=== PATIENT | female | born 1975 | race Hispanic/Latino ===

== ENCOUNTER 2017-04-21 05:27 | Inpatient (IN) | payer MEDICAID ==
[2017-04-21 05:28] VITALS: BMI 31.8
[2017-04-21] MEDS ORDERED: Sodium Chloride 0.9% 1,000 ML IV ONE ×2 (05:52→10:32)
--- NOTE | 2017-04-21 05:58 | C.PDOC ---
History Of Present Illness <Emerson Diaz - Last Filed: 04/21/17 07:00> <Victoria Bradley - Last Filed: 04/21/17 09:49> 42 year old female presents to the ED with complaints of difficulty swallowing for approximately 12 hours. Patient states at 6:30pm last night she ate a piece of meat and "it feels like its stuck in my throat." She notes multiple episodes of vomiting and states "this has happened before." Patient denies fever or other complaints. (Emerson Diaz) History Per: Patient History/Exam Limitations: no limitations Onset/Duration Of Symptoms: Hrs Current Symptoms Are (Timing): Still Present Recent travel outside of the [place]: No <Emerson Diaz - Last Filed: 04/21/17 07:00> <Victoria Bradley - Last Filed: 04/21/17 09:49> Time Seen by Provider: 04/21/17 05:37 Chief Complaint (Nursing): ENT Problem Past Medical History Reviewed: Historical Data, Nursing Documentation, Vital Signs - Medical History PMH: Anemia, Depression Surgical History: Cholecystectomy (2002) Family History: States: Unknown Family Hx - Social History Hx Tobacco Use: No Hx Alcohol Use: No Hx Substance Use: No - Immunization History Hx Tetanus Toxoid Vaccination: Yes Hx Influenza Vaccination: No Hx Pneumococcal Vaccination: No <Emesron Diaz - Last Filed: 04/21/17 07:00> Vital Signs: Last Vital Signs Temp 98.4 F 04/21/17 09:15 Pulse 82 04/21/17 09:15 Resp 18 04/21/17 09:15 BP 132/78 04/21/17 09:15 Pulse Ox 99 04/21/17 09:15 - [facility] Procedures DRESSING OF WOUND NEC (02/01/14) Review Of Systems Constitutional: Negative for: Fever, Chills ENT: Positive for: Other (difficulty swallowing) Respiratory: Negative for: Cough, Shortness of Breath Gastrointestinal: Negative for: Nausea, Vomiting <Emerson Diaz - Last Filed: 04/21/17 07:00> Physical Exam - Physical Exam Appears: Non-toxic, No Acute Distress Skin: Warm, Dry Head: Atraumatic, Normacephalic Eye(s): bilateral: Normal Inspection, PERRL, EOMI Ear(s): Bilateral: Normal Nose: Normal, No Discharge Oral Mucosa: Moist Tongue: Normal Appearing, No Swelling Lips: Normal Appearing, No Swelling Throat: Normal, No Erythema, No Exudate Neck: Supple Chest: Symmetrical, No Deformity Cardiovascular: Rhythm Regular, No Murmur Respiratory: Normal Breath Sounds, No Rales, No Rhonchi, No Wheezing Gastrointestinal/Abdominal: Soft, No Tenderness, No Distention, No Guarding, No Rebound Extremity: Normal ROM, No Tenderness <Emerson Diaz - Last Filed: 04/21/17 07:00> ED Course And Treatment - Laboratory Results Result Diagrams: 04/21/17 06:08 04/21/17 06:08 O2 Sat by Pulse Oximetry: 97 (RA) Progress Note: Neck and chest CT were ordered as well as labs and blood work. Patient was given Zofran and IV fluids. <Emerson Diaz - Last Filed: 04/21/17 07:00> - Laboratory Results Result Diagrams: 04/21/17 06:08 04/21/17 06:08 Interpretation Of Abnormal: Repeat EKG. RATE: 60BPM, NSR, NO ACUTE ST/T WAVE CHANGES <Victoria Bradley - Last Filed: 04/21/17 09:49> Progress <Emerson Diaz - Last Filed: 04/21/17 07:00> - Data Reviewed Data Reviewed: Lab, Diagnostic imaging <Victoria Bradley - Last Filed: 04/21/17 09:49> - Re-Evaluation Re-evaluation Note: 04/21/17 07:48 MILD DISCOMFORT NONTOXIC. PS SX SINCE 1830, NO IMPROVEMENT. +UNABLE TO TOLERATE SECRETIONS. 04/21/17 08:35 D/W DR NEWSOME GI ROTARY BAR OPERATOR 04/21/17 08:41 D/W DR DUMONT C/F PMD WILL ADMIT (Victoria Bradley) Medical Decision Making <Emerson Diaz - Last Filed: 04/21/17 07:00> <Victoria Bradley - Last Filed: 04/21/17 09:49> Medical Decision Making: r/o foreign body- labs imaging pending 700: pt pending ct results. endorsed to day shift pending ct results (Emerson Diaz) Disposition <Emerson Diaz - Last Filed: 04/21/17 07:00> Counseled Patient/Family Regarding: Studies Performed, Diagnosis - Disposition Disposition Time: 08:49 - POA Present On Arrival: None <Victoria Bradley - Last Filed: 04/21/17 09:49> - Disposition Disposition: HOSPITALIZED Condition: STABLE - Clinical Impression Clinical Impression: Esophageal foreign body - Scribe Statement The provider has reviewed the documentation as recorded by the Scribe <Emerson Diaz - Last Filed: 04/21/17 07:00> <Victoria Bradley - Last Filed: 04/21/17 09:49> - Scribe Statement Stacy Sahu All medical record entries made by the Scribe were at my direction and personally dictated by me. I have reviewed the chart and agree that the record accurately reflects my personal performance of the history, physical exam, medical decision making, and the department course for this patient. I have also personally directed, reviewed, and agree with the discharge instructions and disposition. (Emerson Diaz) Decision To Admit <Emerson Diaz - Last Filed: 04/21/17 07:00> - Pt Status Changed To: Hospital Disposition Of: Observation - . Bed Request Type: Same Day Surgery Admitting Physician: Janessa Dumont <Victoria Bradley - Last Filed: 04/21/17 09:49> - . Patient Diagnosis: Esophageal foreign body
[2017-04-21] MEDS ORDERED: Sodium Chloride 0.9% 1,000 ML ONE ×2 (06:07→09:40)
[2017-04-21 06:13] LABS: BASO # 0.1 K/uL (0.0-0.2); BASO % 0.5 % (0.0-2.0); EOS # 0.2 K/uL (0.0-0.7); EOS % 1.7 % (0.0-4.0); HEMATOCRIT 37.7 % (34.0-47.0); LYMPH # 1.7 K/uL (1.0-4.3); LYMPH % 15.6 % (20.0-40.0); MEAN CELL VOLUME 93.2 fL (81.0-99.0); MEAN CORPUSCULAR HEMOGLOBIN 32.3 pg (27.0-31.0); MEAN CORPUSCULAR HGB CONC 34.7 g/dL (33.0-37.0); MEAN PLATELET VOLUME 9.9 fL (7.2-11.7); MONO # 0.7 K/uL (0.0-0.8); MONO % 6.3 % (0.0-10.0); WHITE BLOOD COUNT 10.8 K/uL (4.8-10.8)
[2017-04-21 06:17] LABS: CHLORIDE 104 mmol/L (98-107); POTASSIUM 3.7 mmol/L (3.6-5.2); SODIUM 145 mmol/L (132-148)
[2017-04-21 06:20] LABS: ALB/GLOB RATIO 1.4 (1.0-2.1); ALKALINE PHOSPHATASE 55 U/L (38-126); ALT/SGPT 24 U/L (9-52); AST/SGOT 18 U/L (14-36); BILIRUBIN,TOTAL 0.8 mg/dL (0.2-1.3); BLOOD UREA NITROGEN 12 mg/dL (7-17); CALCIUM 8.6 mg/dl (8.6-10.4); CARBON DIOXIDE 22 mmol/L (22-30); GFR AFRICAN-AMERICAN > 60; GLUCOSE,RANDOM 82 mg/dL (65-105); TOTAL PROTEIN 7.4 g/dL (6.3-8.3)
[2017-04-21 06:57] LABS: INR 1.1
--- NOTE | 2017-04-21 07:37 | CT ---
EXAM: CT Neck Without Intravenous Contrast CLINICAL HISTORY: 42 years old, female; Signs and symptoms; Other: Foreign body; Dysphagia / difficulty swallowing TECHNIQUE: Axial computed tomography images of the neck without intravenous contrast. All CT scans at this facility use one or more dose reduction techniques, viz.: automated exposure control; ma/kV adjustment per patient size (including targeted exams where dose is matched to indication; i.e. head); or iterative reconstruction technique. Coronal and sagittal reformatted images were created and reviewed. COMPARISON: No relevant prior studies available. FINDINGS: The airway is patent. Normal causes identified. Small scattered lymph nodes are noted throughout the neck. There is no abscess or soft tissue mass identified however lack of intravenous contrast is limiting. The cervical vertebrae are well aligned and cervical vertebral body height is well-maintained. IMPRESSION: Normal neck CT. EXAM: CT Chest Without Intravenous Contrast EXAM DATE/TIME: 04/21/2017 5:52 AM CLINICAL HISTORY: 42 years old, female; Signs and symptoms; Other: Foreign body; Dysphagia / difficulty swallowing TECHNIQUE: Axial computed tomography images of the chest without intravenous contrast. All CT scans at this facility use one or more dose reduction techniques, viz.: automated exposure control; ma/kV adjustment per patient size (including targeted exams where dose is matched to indication; i.e. head); or iterative reconstruction technique. Coronal and sagittal reformatted images were created and reviewed. COMPARISON: No relevant prior studies available. FINDINGS: No aortic aneurysm. No pleural or pericardial effussions. No pulmonary consolidation. There is diffuse esophageal dilation. In the distal esophagus, extending to the GE junction, is a segment of intraluminal heterogeneous material. It may represent debris such as recently ingested food. It would be difficult to exclude underlying soft tissue lesion ( lack of intravenous and oral contrast is limiting). There is no radiopaque foreign body identified. Fluoroscopy swallowing study could be performed for further evaluation. IMPRESSION: Heterogeneous material in the distal esophagus as discussed above with proximal dilation.Fluoroscopy swallowing study could be performed for further evaluation.
--- NOTE | 2017-04-21 09:12 | CP.PCM.HP ---
Addendum entered and electronically signed by Ricardo Alfonso DO 04/21/17 15:00: GI is [facility]; not [facility] Addendum entered and electronically signed by Ricardo Alfonso DO 04/21/17 10:54: Zofran PRN instead of metoclopramide Original Note: <Ricardo Alfonso - Last Filed: 04/21/17 10:53> History of Present Illness - History of Present Illness History of Present Illness: Medicine Note: Dr. Ricardo Alfonso PGY2 Note for Dr. Dumont CC: Vomiting and dysphagia This patient is a 42yo F w/ unknown psychiatric illness, restless leg syndrome, and nerve pain who is coming into the hospital after she ingested a hamburger at 6pm yesterday (04/20) and was unable to eat anything after. She feels like the hamburger is stuck in her throat, and is unable to tolerate any of her own secretions and is continuously vomiting. She had GI followup in the past, but cannot remember the name of the doctor she saw and he did not place her on any sort of special diet or run any special tests; states this has happened in the past before though but it normally resolves on its own. She is unable to tolerate any PO, and has diffuse esophageal pain. Denies any fevers/chills, HAIRSTON, CP, SOB, abdominal pain, dysuria/freq/urg, or lower extremity pain/swelling. In ED they did a chest CT which showed a foreign body at the GE junction with surrounding inflammation and diffuse esophageal dilitation. PMhx: does not remember but states "nerve pain" and "psych problems" but has never been admitted for psych reasons Surgeries: partial hysterectomy, 2 c sections, gallbladder removal Allergies: None FamHx: Dad with Lung CA 96 ex smoker, mom with no health issues, brothers/ sisters in good health Social: denies EtOH, illiict drugs, independent in all IADL and ADL Meds: unabel to remember; goes to [facility], multiple calls made with no answer. Will re-attempt later. Present on Admission - Present on Admission Any Indicators Present on Admission: No History of DVT/PE: No History of Uncontrolled Diabetes: No Urinary Catheter: No Decubitus Ulcer Present: No Past Patient History - Infectious Disease Hx of Infectious Diseases: None - Past Medical History & Family History Past Medical History?: Yes - Past Social History Smoking Status: Never Smoked - CARDIAC Hx Cardiac Disorders: No - PULMONARY Hx Respiratory Disorders: No - NEUROLOGICAL Hx Neurological Disorder: No Other/Comment: left leg nerve damage, back problems, weak bladder. - HEENT Hx HEENT Problems: No - RENAL Hx Chronic Kidney Disease: No - ENDOCRINE/METABOLIC Hx Endocrine Disorders: Yes Other/Comment: THYROID NOUDLE - HEMATOLOGICAL/ONCOLOGICAL Hx Anemia: Yes - INTEGUMENTARY Hx Dermatological Problems: No - MUSCULOSKELETAL/RHEUMATOLOGICAL Hx Falls: No - GASTROINTESTINAL Hx Gastrointestinal Disorders: No - GENITOURINARY/GYNECOLOGICAL Hx Genitourinary Disorders: No - PSYCHIATRIC Hx Depression: Yes Hx Substance Use: No - SURGICAL HISTORY Hx Cholecystectomy: Yes (2002) - ANESTHESIA Hx Anesthesia: Yes Hx Anesthesia Reactions: No Hx Malignant Hyperthermia: No Meds Allergies/Adverse Reactions: Allergies Allergy/AdvReac Type Severity Reaction Status Date / Time No Known Allergies Allergy Verified 04/21/17 05:44 Physical Exam - Constitutional Appears: Non-toxic Additional comments: actively wretching in bed - Head Exam Head Exam: ATRAUMATIC - Eye Exam Eye Exam: EOMI Pupil Exam: PERRL - ENT Exam ENT Exam: Mucous Membranes Moist - Neck Exam Neck exam: Positive for: Full Rom, Normal Inspection. Negative for: Lymphadenopathy, Thyromegaly - Respiratory Exam Respiratory Exam: Clear to Auscultation Bilateral, NORMAL BREATHING PATTERN. absent: Rales, Rhonchi, Wheezes - Cardiovascular Exam Cardiovascular Exam: REGULAR RHYTHM, +S1, +S2 - GI/Abdominal Exam GI & Abdominal Exam: Normal Bowel Sounds, Soft, Tenderness (epigastric region). absent: Guarding, Hernia, Mass, Pulsatile Mass, Rebound, Rigid - Rectal Exam Rectal Exam: Deferred - Extremities Exam Extremities exam: Positive for: full ROM. Negative for: calf tenderness - Back Exam Back exam: NORMAL INSPECTION. absent: CVA tenderness (L), CVA tenderness (R) - Neurological Exam Neurological exam: Alert, CN II-XII Intact, Oriented x3, Reflexes Normal (no lid lag, no nystagmus, speech is normal not pressured, no abnormal hair loss) - Psychiatric Exam Psychiatric exam: Normal Affect - Skin Skin Exam: Warm Results - Vital Signs Recent Vital Signs: Last Vital Signs Temp 98.2 F 04/21/17 06:38 Pulse 73 04/21/17 06:38 Resp 20 04/21/17 06:38 BP 123/81 04/21/17 06:38 Pulse Ox 97 04/21/17 07:01 - Labs Result Diagrams: 04/21/17 06:08 04/21/17 06:08 Labs: Laboratory Results - last 24 hr 04/21/17 04/21/17 04/21/17 06:08 06:08 06:08 WBC 10.8 D RBC 4.05 Hgb 13.1 Hct 37.7 MCV 93.2 MCH 32.3 H MCHC 34.7 RDW 13.0 Plt Count 213 MPV 9.9 Neut % (Auto) 75.9 H Lymph % (Auto) 15.6 L [place] % (Auto) 6.3 Eos % (Auto) 1.7 Baso % (Auto) 0.5 Neut # 8.2 H Lymph # 1.7 [place] # 0.7 Eos # 0.2 Baso # 0.1 PT 12.3 H INR 1.1 APTT 33 Sodium 145 Potassium 3.7 Chloride 104 Carbon Dioxide 22 Anion Gap 22 H BUN 12 Creatinine 0.6 L Est GFR ( Amer) > 60 Est GFR (Non-Af Amer) > 60 Random Glucose 82 Calcium 8.6 Total Bilirubin 0.8 AST 18 ALT 24 Alkaline Phosphatase 55 Total Protein 7.4 Albumin 4.3 Globulin 3.1 Albumin/Globulin Ratio 1.4 Assessment & Plan - Assessment and Plan (Free Text) Assessment: 42yo F admitted for foreign body ingestion and intractable vomiting Foreign Body Ingestion causing intractable vomiting -GI; Juvenal; appreciate recs -NPO -CT showed blockage at GE junction with what looks like food with diffuse esophageal dilitation -Metoclopramide PRN for nausea -100ml/hr NS since NPO unable to obtain med rec -will call [facility] pharmacy again for a complete list of meds -pharmacy has not been picking up; patient asked to have friend bring in meds Prophylaxis Pepcid IV BID Lovenox SC NPO for now; advance diet as per GI Case discussed and seen with Dr. Julia Alfonso PGY2 Decision To Admit - Pt Status Changed To: Hospital Disposition Of: Observation - . Bed Request Type: Regular Admitting Physician: Janessa Dumont <Janessa Dumont V - Last Filed: 04/23/17 13:40> Results - Vital Signs Recent Vital Signs: Last Vital Signs Temp 99.8 F H 04/22/17 08:13 Pulse 88 04/22/17 08:13 Resp 20 04/22/17 08:13 BP 110/70 04/22/17 08:13 Pulse Ox 97 04/22/17 08:13 - Labs Result Diagrams: 04/22/17 08:02 04/22/17 08:02 Attending/Attestation - Attestation I have personally seen and examined this patient.: Yes I have fully participated in the care of the patient.: Yes I have reviewed all pertinent clinical information: Yes Notes (Text): This is a late computer entry for 04/21/2017. Patient seen, examined and case discussed with day-time resident. Patient seen in [facility] Bed 15 in the Emergency Room on 04/21/17 approximately at 9:15AM. Discussed with ED Physician, Dr Bradley spoke initially with Dr. Sanford, GI, however Dr. Hermosillo is translational specialist regards to patient's foreign body ingestion. Patient reports she was at a street [employer] the day prior, had eaten hamburger, while sleeping she felt it stuck in her chest and attempted to throw it up without success. [facility] which she has had an EGD and colonoscopy early this year. Patient is made NPO, anticoagulation secondary to procedure, EKG ordered, and patient cannot recall which medications she takes regularly. Resident has attempted to call [facility]'s pharmacy but it is not open this morning. Reglan d/c to promote motility. Assessment/Plan 1) Foreign Body Ingestion * GI (Dr. Hermosillo) help appreciated * NO * CT Neck/Chest showed blockage at GE junction with what looks like food with diffuse esophageal dilatation-->official report in the EMR * Zofran 4mg IVQ 6H PRN nausea * NS 100cc/hr 2) Prophylaxis * Pepcid 20mg IV BID for GI ppx * Anticoagulation held secondary to procedure for removal for food debris * NPO; Diet to be determine by GI post procedure
[2017-04-21] MEDS: Sodium Chloride 0.9% 1,000 ML IV SCH ×2 (09:36→17:50)
[2017-04-21] MEDS ORDERED: Phenylephrine 10 mg/ml Inj ONE (10:25)
[2017-04-21] MEDS ORDERED: Succinylcholine Chloride 20 mg/ml Syr (5 ml) IV ONE (10:25)
[2017-04-21] MEDS ORDERED: Propofol 10 mg/ml Inj (20 ML) ONE (10:25)
[2017-04-21] MEDS ORDERED: Lidocaine Hydrochloride 5 ML INJ ONE (10:27)
--- NOTE | 2017-04-21 10:42 | CP.PCM.CON ---
History of Present Illness - History of Present Illness History of Present Illness: CC: Impacted esophageal foreign body HPI: Patient ate a burger last night and felt it stuck in chest despite trying to initiate emesis. Seen in ER and has not passed. CT consfirms food material in distal esophagus. Sees Dr Gama and had EGD and Colonoscopy in past 2 years, for chronic constipation. Was tols EGD is normal. Patient has had similar food impactions over the years but never required endoscopy to dislodge. She is presently comfortable. Review of Systems - Constitutional Constitutional: absent: Weight Loss, Weakness - Cardiovascular Cardiovascular: absent: Chest Pain - Respiratory Respiratory: absent: Dyspnea on Exertion - Gastrointestinal Gastrointestinal: Constipation. absent: Abdominal Pain - Genitourinary Genitourinary: Urinary Urgency Past Patient History - Infectious Disease Hx of Infectious Diseases: None - Past Medical History & Family History Past Medical History?: Yes - Past Social History Smoking Status: Never Smoked - CARDIAC Hx Cardiac Disorders: No - PULMONARY Hx Respiratory Disorders: No - NEUROLOGICAL Hx Neurological Disorder: No Other/Comment: left leg nerve damage, back problems, weak bladder. - HEENT Hx HEENT Problems: No - RENAL Hx Chronic Kidney Disease: No - ENDOCRINE/METABOLIC Hx Endocrine Disorders: Yes Other/Comment: THYROID NOUDLE - HEMATOLOGICAL/ONCOLOGICAL Hx Anemia: Yes - INTEGUMENTARY Hx Dermatological Problems: No - MUSCULOSKELETAL/RHEUMATOLOGICAL Hx Falls: No - GASTROINTESTINAL Hx Gastrointestinal Disorders: No - GENITOURINARY/GYNECOLOGICAL Hx Genitourinary Disorders: No - PSYCHIATRIC Hx Depression: Yes Hx Substance Use: No - SURGICAL HISTORY Hx Cholecystectomy: Yes (2002) - ANESTHESIA Hx Anesthesia: Yes Hx Anesthesia Reactions: No Hx Malignant Hyperthermia: No Meds Allergies/Adverse Reactions: Allergies Allergy/AdvReac Type Severity Reaction Status Date / Time No Known Allergies Allergy Verified 04/21/17 05:44 - Medications Medications: Current Medications Famotidine (Pepcid) 20 mg IVP DAILY [facility] Last Admin: 04/21/17 09:36 Dose: 20 mg Sodium Chloride (Sodium Chloride 0.9%) 1,000 mls @ 100 mls/hr IV .Q10H [facility] Last Admin: 04/21/17 09:36 Dose: 100 mls/hr Ondansetron HCl (Zofran Inj) 4 mg IVP Q6H PRN PRN Reason: Nausea/Vomiting Physical Exam - Constitutional Appears: Well, No Acute Distress - Head Exam Head Exam: ATRAUMATIC, NORMOCEPHALIC - Eye Exam Eye Exam: absent: Scleral icterus - Neck Exam Neck exam: Positive for: Normal Inspection - Respiratory Exam Respiratory Exam: NORMAL BREATHING PATTERN - Cardiovascular Exam Cardiovascular Exam: REGULAR RHYTHM - GI/Abdominal Exam GI & Abdominal Exam: Soft. absent: Tenderness Results - Vital Signs Recent Vital Signs: Last Vital Signs Temp 98.4 F 04/21/17 09:15 Pulse 82 04/21/17 09:15 Resp 18 04/21/17 09:15 BP 132/78 04/21/17 09:15 Pulse Ox 99 04/21/17 09:15 - Labs Result Diagrams: 04/21/17 06:08 04/21/17 06:08 Labs: Laboratory Results - last 24 hr 04/21/17 04/21/17 04/21/17 06:08 06:08 06:08 WBC 10.8 D RBC 4.05 Hgb 13.1 Hct 37.7 MCV 93.2 MCH 32.3 H MCHC 34.7 RDW 13.0 Plt Count 213 MPV 9.9 Neut % (Auto) 75.9 H Lymph % (Auto) 15.6 L [place] % (Auto) 6.3 Eos % (Auto) 1.7 Baso % (Auto) 0.5 Neut # 8.2 H Lymph # 1.7 [place] # 0.7 Eos # 0.2 Baso # 0.1 PT 12.3 H INR 1.1 APTT 33 Sodium 145 Potassium 3.7 Chloride 104 Carbon Dioxide 22 Anion Gap 22 H BUN 12 Creatinine 0.6 L Est GFR ( Amer) > 60 Est GFR (Non-Af Amer) > 60 Random Glucose 82 Calcium 8.6 Total Bilirubin 0.8 AST 18 ALT 24 Alkaline Phosphatase 55 Total Protein 7.4 Albumin 4.3 Globulin 3.1 Albumin/Globulin Ratio 1.4 Free T4 TSH 3rd Generation 04/21/17 04/21/17 09:41 09:41 WBC RBC Hgb Hct MCV MCH MCHC RDW Plt Count MPV Neut % (Auto) Lymph % (Auto) [place] % (Auto) Eos % (Auto) Baso % (Auto) Neut # Lymph # [place] # Eos # Baso # PT INR APTT Sodium Potassium Chloride Carbon Dioxide Anion Gap BUN Creatinine Est GFR ( Amer) Est GFR (Non-Af Amer) Random Glucose Calcium Total Bilirubin AST ALT Alkaline Phosphatase Total Protein Albumin Globulin Albumin/Globulin Ratio Free T4 1.16 TSH 3rd Generation 1.80 Assessment & Plan (1) Esophageal foreign body Assessment and Plan: requires urgent EGD R/O underlying Esophageal pathology given patient's prior history of dysphagia Status: Acute (2) Constipation Assessment and Plan: Followed and managed by her outpatient GI Dr Gama Status: Acute
[2017-04-21] MEDS ORDERED: Lactated Ringer's 1,000 ML IV ONE (11:30)
[2017-04-21] MEDS: HYDROmorphone 0.5 mg/0.5 ml ISec IVP PRN ×2 (11:40→11:59)
[2017-04-21 16:53] VITALS: RESP 20
[2017-04-22] MEDS: Sodium Chloride 0.9% 1,000 ML IV SCH ×2 (03:23→05:45)
[2017-04-22 08:15] VITALS: BP 110/70; PULSE 88; TEMP 99.8; O2SAT 97
[2017-04-22 08:16] LABS: BASO % 0.3 % (0.0-2.0); EOS # 0.2 K/uL (0.0-0.7); EOS % 1.5 % (0.0-4.0); HEMATOCRIT 32.5 % (34.0-47.0); LYMPH # 1.7 K/uL (1.0-4.3); LYMPH % 12.3 % (20.0-40.0); MEAN CELL VOLUME 92.2 fL (81.0-99.0); MEAN CORPUSCULAR HEMOGLOBIN 32.5 pg (27.0-31.0); MEAN CORPUSCULAR HGB CONC 35.2 g/dL (33.0-37.0); MEAN PLATELET VOLUME 10.1 fL (7.2-11.7); MONO # 0.8 K/uL (0.0-0.8); MONO % 5.9 % (0.0-10.0); WHITE BLOOD COUNT 13.9 K/uL (4.8-10.8)
[2017-04-22 08:33] LABS: CHLORIDE 100 mmol/L (98-107)
[2017-04-22 08:34] LABS: POTASSIUM 3.5 mmol/L (3.6-5.2); SODIUM 135 mmol/L (132-148)
[2017-04-22 08:35] LABS: BILIRUBIN,TOTAL 1.1 mg/dL (0.2-1.3); GFR AFRICAN-AMERICAN > 60
[2017-04-22 08:36] LABS: ALB/GLOB RATIO 1.1 (1.0-2.1); ALKALINE PHOSPHATASE 46 U/L (38-126); ALT/SGPT 20 U/L (9-52); AST/SGOT 14 U/L (14-36); BLOOD UREA NITROGEN 9 mg/dL (7-17); CALCIUM 7.8 mg/dl (8.6-10.4); CARBON DIOXIDE 24 mmol/L (22-30); GLUCOSE,RANDOM 94 mg/dL (65-105); TOTAL PROTEIN 6.3 g/dL (6.3-8.3)
[2017-04-22] MEDS ORDERED: Enoxaparin 40 mg Syringe SC SCH (10:00)
--- NOTE | 2017-04-22 15:44 | CP.PCM.PN ---
Subjective - Date & Time of Evaluation Date of Evaluation: 04/22/17 Time of Evaluation: 15:42 - Subjective Subjective: CC: follow up dysphagia Notes some chest soreness post procedure Afraid to eat though tolerating liquids Stable for discharge home on PPI + soft mechanical diet Objective - Vital Signs/Intake and Output Vital Signs (last 24 hours): Temp Pulse Resp BP Pulse Ox 99.8 F H 88 20 110/70 97 04/22/17 08:13 04/22/17 08:13 04/22/17 08:13 04/22/17 08:13 04/22/17 08:13 Intake and Output: 04/22/17 04/22/17 06:59 18:59 Intake Total 1280 Balance 1280 - Medications Medications: Current Medications Famotidine (Pepcid) 20 mg IVP DAILY [facility] Last Admin: 04/22/17 10:30 Dose: 20 mg Sodium Chloride (Sodium Chloride 0.9%) 1,000 mls @ 100 mls/hr IV .Q10H [facility] Last Admin: 04/22/17 05:45 Dose: Not Given Ondansetron HCl (Zofran Inj) 4 mg IVP Q6H PRN PRN Reason: Nausea/Vomiting Pneumococcal Polyvalent Vaccine (Pneumovax 23 Vaccine) 0.5 ml IM .ONCE ONE Stop: 04/23/17 13:30 - Labs Labs: 04/22/17 08:02 04/22/17 08:02 PT 12.3 SECONDS (9.7-12.2) H 04/21/17 06:08 INR 1.1 04/21/17 06:08 APTT 33 SECONDS (21-34) 04/21/17 06:08 - Constitutional Appears: Well, No Acute Distress - Head Exam Head Exam: NORMOCEPHALIC - Respiratory Exam Respiratory Exam: NORMAL BREATHING PATTERN - Cardiovascular Exam Cardiovascular Exam: REGULAR RHYTHM - GI/Abdominal Exam GI & Abdominal Exam: Soft. absent: Tenderness Assessment and Plan (1) Esophageal foreign body Assessment & Plan: Successfull endoscopic removal of esophageal meat impaction Today with leukocytosis and soreness in chest. 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
[2017-04-22] MEDS ORDERED: Pneumococcal 23-Valent Vaccine IM ONE (17:15)
[2017-04-22] MEDS ORDERED: Influenza Vaccine 60 mcg/0.5 mL SYR (4YR UP) IM ONE (17:30)
--- NOTE | 2017-04-22 18:01 | CP.PCM.DIS ---
<Tr Short - Last Filed: 04/23/17 16:00> Provider - Provider Date of Admission: 04/21/17 11:43 Attending physician: Janessa Dumont DO Time Spent in preparation of Discharge (in minutes): 20 Hospital Course - Lab Results Lab Results: Most Recent Lab Values WBC 13.9 K/uL (4.8-10.8) H 04/22/17 08:02 RBC 3.53 Mil/uL (3.80-5.20) L 04/22/17 08:02 Hgb 11.4 g/dL (11.0-16.0) 04/22/17 08:02 Hct 32.5 % (34.0-47.0) L 04/22/17 08:02 MCV 92.2 fL (81.0-99.0) 04/22/17 08:02 MCH 32.5 pg (27.0-31.0) H 04/22/17 08:02 MCHC 35.2 g/dL (33.0-37.0) 04/22/17 08:02 RDW 13.0 % (11.5-14.5) 04/22/17 08:02 Plt Count 179 K/uL (130-400) 04/22/17 08:02 MPV 10.1 fL (7.2-11.7) 04/22/17 08:02 Neut % (Auto) 80.0 % (50.0-75.0) H 04/22/17 08:02 Lymph % (Auto) 12.3 % (20.0-40.0) L 04/22/17 08:02 Vigo % (Auto) 5.9 % (0.0-10.0) 04/22/17 08:02 Eos % (Auto) 1.5 % (0.0-4.0) 04/22/17 08:02 Baso % (Auto) 0.3 % (0.0-2.0) 04/22/17 08:02 Neut # 11.1 K/uL (1.8-7.0) H 04/22/17 08:02 Lymph # 1.7 K/uL (1.0-4.3) 04/22/17 08:02 Vigo # 0.8 K/uL (0.0-0.8) 04/22/17 08:02 Eos # 0.2 K/uL (0.0-0.7) 04/22/17 08:02 Baso # 0.0 K/uL (0.0-0.2) 04/22/17 08:02 PT 12.3 SECONDS (9.7-12.2) H 04/21/17 06:08 INR 1.1 04/21/17 06:08 APTT 33 SECONDS (21-34) 04/21/17 06:08 Sodium 135 mmol/L (132-148) 04/22/17 08:02 Potassium 3.5 mmol/L (3.6-5.2) L 04/22/17 08:02 Chloride 100 mmol/L (98-107) 04/22/17 08:02 Carbon Dioxide 24 mmol/L (22-30) 04/22/17 08:02 Anion Gap 15 (10-20) 04/22/17 08:02 BUN 9 mg/dL (7-17) 04/22/17 08:02 Creatinine 0.6 MG/DL (0.7-1.2) L 04/22/17 08:02 Est GFR ( Amer) > 60 04/22/17 08:02 Est GFR (Non-Af Amer) > 60 04/22/17 08:02 Random Glucose 94 mg/dL (65-105) 04/22/17 08:02 Calcium 7.8 mg/dl (8.6-10.4) L 04/22/17 08:02 Total Bilirubin 1.1 mg/dL (0.2-1.3) 04/22/17 08:02 AST 14 U/L (14-36) D 04/22/17 08:02 ALT 20 U/L (9-52) 04/22/17 08:02 Alkaline Phosphatase 46 U/L (38-126) 04/22/17 08:02 Total Protein 6.3 g/dL (6.3-8.3) 04/22/17 08:02 Albumin 3.3 g/dL (3.5-5.0) L D 04/22/17 08:02 Globulin 3.0 gm/dL (2.2-3.9) 04/22/17 08:02 Albumin/Globulin Ratio 1.1 (1.0-2.1) 04/22/17 08:02 Free T4 1.16 ng/dL (0.78-2.19) 04/21/17 09:41 TSH 3rd Generation 1.80 mIU/L (0.46-4.68) 04/21/17 09:41 Urine HCG, Qual Negative (NEGATIVE) 04/22/17 07:00 - Hospital Course Hospital Course: As per admission documentation 04/21/17, This patient is a 42yo F w/ unknown psychiatric illness, restless leg syndrome, and nerve pain who is coming into the hospital after she ingested a hamburger at 6pm yesterday (04/20) and was unable to eat anything after. She feels like the hamburger is stuck in her throat, and is unable to tolerate any of her own secretions and is continuously vomiting. She had GI followup in the past, but cannot remember the name of the doctor she saw and he did not place her on any sort of special diet or run any special tests; states this has happened in the past before though but it normally resolves on its own. She is unable to tolerate any PO, and has diffuse esophageal pain. Denies any fevers/chills, HAIRSTON, CP, SOB, abdominal pain, dysuria/freq/urg, or lower extremity pain/swelling. Hospital course Patient was admitted for foreign body ingestion causing intractable vomiting. GI consult, Dr. Hermosillo. CT showed blockage at GE junction with what looks like food with diffuse esophageal dilitation. Patient went for EGD on 04/21/2017 - Food bolus found in the middle third of the esophagus, removal was successful. Normal stomach, normal duodenum. biopsies performed in the middle third of the esophagus and the lower third of the esophagus. Patient was placed on and tolerated a CLD. Patient is to follow up with GI outpatient. Patient was stable for the remainder of her hospital stay. Discharge instructions, Patient is to be discharged home as per Dr. Fortune. Patient is to follow up with her Primary Care Physician as needed. If patient does not have a primary care physician, patient is to follow up with the neighborhood clinic located in the basement of [facility]. If symptoms return or worsen, please return to the hospital. - Date & Time of H&P Date of H&P: 04/21/17 Time of H&P: 09:08 Discharge Exam - Head Exam Head Exam: NORMOCEPHALIC - Eye Exam Eye Exam: EOMI, Normal appearance - ENT Exam ENT Exam: Mucous Membranes Moist - Respiratory Exam Respiratory Exam: Clear to PA & Lateral, NORMAL BREATHING PATTERN, UNREMARKABLE - Cardiovascular Exam Cardiovascular Exam: REGULAR RHYTHM, +S1, +S2 - GI/Abdominal Exam GI & Abdominal Exam: Normal Bowel Sounds. absent: Distended, Firm, Guarding, Hernia - Extremities Exam Extremities exam: normal inspection - Neurological Exam Neurological exam: Alert, CN II-XII Intact, Normal Gait, Oriented x3 - Psychiatric Exam Psychiatric exam: Normal Affect, Normal Mood - Skin Skin Exam: Dry, Intact, Normal Color, Warm Discharge Plan - Follow Up Plan Condition: STABLE Disposition: HOME/ ROUTINE Instructions: Esophageal Dilation (DC) Additional Instructions: Patient is to be discharged home as per Dr. Fortune. Patient is to follow up with her Primary Care Physician as needed. If patient does not have a primary care physician, patient is to follow up with the neighborhood clinic located in the basement of [facility]. If symptoms return or worsen, please return to the hospital. Referrals: Janna Self MD [Staff Provider] - <Van Fortune - Last Filed: 04/24/17 07:48> Provider - Provider Date of Admission: 04/21/17 11:43 Attending physician: Janessa Dumont DO Hospital Course - Lab Results Lab Results: Most Recent Lab Values WBC 13.9 K/uL (4.8-10.8) H 04/22/17 08:02 RBC 3.53 Mil/uL (3.80-5.20) L 04/22/17 08:02 Hgb 11.4 g/dL (11.0-16.0) 04/22/17 08:02 Hct 32.5 % (34.0-47.0) L 04/22/17 08:02 MCV 92.2 fL (81.0-99.0) 04/22/17 08:02 MCH 32.5 pg (27.0-31.0) H 04/22/17 08:02 MCHC 35.2 g/dL (33.0-37.0) 04/22/17 08:02 RDW 13.0 % (11.5-14.5) 04/22/17 08:02 Plt Count 179 K/uL (130-400) 04/22/17 08:02 MPV 10.1 fL (7.2-11.7) 04/22/17 08:02 Neut % (Auto) 80.0 % (50.0-75.0) H 04/22/17 08:02 Lymph % (Auto) 12.3 % (20.0-40.0) L 04/22/17 08:02 Vigo % (Auto) 5.9 % (0.0-10.0) 04/22/17 08:02 Eos % (Auto) 1.5 % (0.0-4.0) 04/22/17 08:02 Baso % (Auto) 0.3 % (0.0-2.0) 04/22/17 08:02 Neut # 11.1 K/uL (1.8-7.0) H 04/22/17 08:02 Lymph # 1.7 K/uL (1.0-4.3) 04/22/17 08:02 Vigo # 0.8 K/uL (0.0-0.8) 04/22/17 08:02 Eos # 0.2 K/uL (0.0-0.7) 04/22/17 08:02 Baso # 0.0 K/uL (0.0-0.2) 04/22/17 08:02 PT 12.3 SECONDS (9.7-12.2) H 04/21/17 06:08 INR 1.1 04/21/17 06:08 APTT 33 SECONDS (21-34) 04/21/17 06:08 Sodium 135 mmol/L (132-148) 04/22/17 08:02 Potassium 3.5 mmol/L (3.6-5.2) L 04/22/17 08:02 Chloride 100 mmol/L (98-107) 04/22/17 08:02 Carbon Dioxide 24 mmol/L (22-30) 04/22/17 08:02 Anion Gap 15 (10-20) 04/22/17 08:02 BUN 9 mg/dL (7-17) 04/22/17 08:02 Creatinine 0.6 MG/DL (0.7-1.2) L 04/22/17 08:02 Est GFR ( Amer) > 60 04/22/17 08:02 Est GFR (Non-Af Amer) > 60 04/22/17 08:02 Random Glucose 94 mg/dL (65-105) 04/22/17 08:02 Calcium 7.8 mg/dl (8.6-10.4) L 04/22/17 08:02 Total Bilirubin 1.1 mg/dL (0.2-1.3) 04/22/17 08:02 AST 14 U/L (14-36) D 04/22/17 08:02 ALT 20 U/L (9-52) 04/22/17 08:02 Alkaline Phosphatase 46 U/L (38-126) 04/22/17 08:02 Total Protein 6.3 g/dL (6.3-8.3) 04/22/17 08:02 Albumin 3.3 g/dL (3.5-5.0) L D 04/22/17 08:02 Globulin 3.0 gm/dL (2.2-3.9) 04/22/17 08:02 Albumin/Globulin Ratio 1.1 (1.0-2.1) 04/22/17 08:02 Free T4 1.16 ng/dL (0.78-2.19) 04/21/17 09:41 TSH 3rd Generation 1.80 mIU/L (0.46-4.68) 04/21/17 09:41 Urine HCG, Qual Negative (NEGATIVE) 04/22/17 07:00 Attending/Attestation - Attestation I have personally seen and examined this patient.: Yes I have fully participated in the care of the patient.: Yes I have reviewed all pertinent clinical information, including history, physical exam and plan: Yes Notes (Text): Medical Attending: Patient was seen and examined by me. Agree with the above note by the resident. When I saw her she was not in any acute distress, did not report shortness of breath or chest pain. She was S/P removal of FB The patient tolerated her diet after removal of the the foreign body. thank you Van Fortune
--- NOTE | 2017-04-23 18:44 | CARD ---
APPROVED REPORT EKG Measurement Heart [id number] <Conclusion> Normal sinus rhythm with sinus arrhythmia Normal ECG
== END 2017-04-22 18:11 | disposition home or self-care (01) | DRG 189 ==
LOC: C.ER 05:27 → C.9E 08:50 → OBSVTOIN 11:43 → C.3T 12:15
PROVIDERS: ADMIT Hospitalist; ATTEND Hospitalist
PROC: 0DB38ZX Excision of Lower Esophagus, Via Natural or Artificial Opening Endoscopic, Diagnostic (ICD-10-PCS; 2017-04-21)
PROC: 0DB28ZX Excision of Middle Esophagus, Via Natural or Artificial Opening Endoscopic, Diagnostic (ICD-10-PCS; 2017-04-21)
PROC: 0DC28ZZ Extirpation of Matter from Middle Esophagus, Via Natural or Artificial Opening Endoscopic (ICD-10-PCS; principal; 2017-04-21 10:40)
DX: T18.128A Food in esophagus causing other injury, initial encounter (principal); K20.9 Esophagitis, unspecified; R11.10 Vomiting, unspecified; M79.2 Neuralgia and neuritis, unspecified; K59.00 Constipation, unspecified; G25.81 Restless legs syndrome; Z90.49 Acquired absence of other specified parts of digestive tract; Z90.710 Acquired absence of both cervix and uterus

== ENCOUNTER 2017-11-29 23:03 | Emergency (ER) | payer MEDICAID ==
[2017-11-29 23:07] VITALS: BMI 31.8
--- NOTE | 2017-11-29 23:46 | C.PDOC ---
History Of Present Illness 42 year old female presents to the ER with a complaint of a headache and believes she sometimes hears voices and has difficulty maintaining conversations , worsening over the past 3 days. Patient also complains of diffuse body aches, she has seen a neurologist and has had numerous tests, however, they have no been able to find any etiology for the discomfort. Patient is currently speaking in complete sentences; denies dysarthria. Time Seen by Provider: 11/29/17 23:46 Chief Complaint (Nursing): Headache History Per: Patient History/Exam Limitations: no limitations Onset/Duration Of Symptoms: Days Current Symptoms Are (Timing): Still Present Preceeding Symptoms: None Associated Symptoms: Other (Body aches, difficulty maintaining conversation). denies: Photophobia, Blurred Vision, Nausea, Vomiting, Extremity Weakness Recent travel outside of the [place]: No Past Medical History Reviewed: Historical Data, Nursing Documentation, Vital Signs Vital Signs: Last Vital Signs Temp 97.9 F 11/29/17 23:14 Pulse 74 11/29/17 23:14 Resp BP Pulse Ox 98 11/30/17 00:22 - Medical History PMH: Anemia, Depression Surgical History: Cholecystectomy (2002) - [facility] Procedures DRESSING OF WOUND NEC (02/01/14) EXCISION OF LOWER ESOPHAGUS, ENDO, DIAGN (04/21/17) EXCISION OF MIDDLE ESOPHAGUS, ENDO, DIAGN (04/21/17) EXTIRPATION OF MATTER FROM MIDDLE ESOPHAGUS, ENDO (04/21/17) Family History: States: No Known Family Hx - Social History Hx Tobacco Use: No Hx Alcohol Use: No Hx Substance Use: No - Immunization History Hx Tetanus Toxoid Vaccination: Yes Hx Influenza Vaccination: No Hx Pneumococcal Vaccination: No Review Of Systems Constitutional: Negative for: Fever, Chills Cardiovascular: Negative for: Chest Pain, Palpitations Respiratory: Negative for: Shortness of Breath Musculoskeletal: Positive for: Other (Body aches) Neurological: Positive for: Headache. Negative for: Other (dysarthria) Physical Exam - Physical Exam Appears: Non-toxic Skin: Warm, Dry Head: Normacephalic Eye(s): bilateral: Normal Inspection, PERRL, EOMI Oral Mucosa: Moist Chest: Symmetrical, No Tenderness Cardiovascular: Rhythm Regular Respiratory: No Rales, No Rhonchi, No Wheezing Gastrointestinal/Abdominal: Soft, No Tenderness, Other (Obese) Neurological/Psych: Oriented x3, Other (No focal deficits) ED Course And Treatment - Laboratory Results Result Diagrams: 11/29/17 23:58 11/29/17 23:58 ECG: Interpreted By Me, Viewed By Me ECG Rhythm: Sinus Rhythm (63), R BBB, Nonspecific Changes O2 Sat by Pulse Oximetry: 98 Pulse Ox Interpretation: Normal Progress Note: Blood work, EKG, CT head, and urinalysis ordered. Pt states that she also has an appointment with her neurologist on saturday12/02/17 in am. Copies of all the blood work and cat scan given. Reevaluation Time: 01:02 Reassessment Condition: Improved Medical Decision Making Medical Decision Making: Upon provider reevaluation patient is feeling better, is medically stable, and requires no further treatment in the ED at this time. Patient will be discharged home . Counseling was provided and all questions were answered regarding diagnosis and need for follow up with the referred clinic. There is agreement to discharge plan. Return if symptoms persist or worsen. Disposition Counseled Patient/Family Regarding: Studies Performed, Diagnosis, Need For Followup - Disposition Disposition: HOME/ ROUTINE Disposition Time: 23:46 Condition: FAIR Additional Instructions: Please follow up with your neurologist with possible MRI to exclude MS. Do return if symptoms recur Instructions: Headache, Adult (DC) Forms: [facility] ([place]) - Clinical Impression Clinical Impression: Headache - Scribe Statement The provider has reviewed the documentation as recorded by the Scribe Chepe Anthony All medical record entries made by the Scribe were at my direction and personally dictated by me. I have reviewed the chart and agree that the record accurately reflects my personal performance of the history, physical exam, medical decision making, and the department course for this patient. I have also personally directed, reviewed, and agree with the discharge instructions and disposition.
[2017-11-30 00:01] LABS: BASO # 0.1 K/uL (0.0-0.2); BASO % 0.7 % (0.0-2.0); EOS # 0.3 K/uL (0.0-0.7); EOS % 3.7 % (0.0-4.0); LYMPH # 2.8 K/uL (1.0-4.3); LYMPH % 32.4 % (20.0-40.0); MEAN CELL VOLUME 91.4 fL (81.0-99.0); MEAN CORPUSCULAR HEMOGLOBIN 32.4 pg (27.0-31.0); MEAN CORPUSCULAR HGB CONC 35.5 g/dL (33.0-37.0); MEAN PLATELET VOLUME 9.3 fL (7.2-11.7); MONO # 0.6 K/uL (0.0-0.8); MONO % 7.4 % (0.0-10.0); NEUT # 4.7 K/uL (1.8-7.0); NEUT % 55.8 % (50.0-75.0); RBC 3.7 Mil/uL (3.80-5.20); RED CELL DISTRIBUTION WIDTH 12.8 % (11.5-14.5); WHITE BLOOD COUNT 8.5 K/uL (4.8-10.8)
[2017-11-30 00:13] LABS: HCG,QUALITATIVE URINE NEGATIVE (NEGATIVE)
[2017-11-30 00:14] LABS: SQUAMOUS EPITHIAL 6 /hpf (0-5); URINE BILIRUBIN NEGATIVE (NEGATIVE); URINE BLOOD 1+ (NEGATIVE); URINE CLARITY Clear (Clear); URINE COLOR Yellow (YELLOW); URINE GLUCOSE (UA) NORMAL (Normal); URINE LEUKOCYTE ESTERASE NEG Leu/uL (Negative); URINE PROTEIN NEGATIVE (NEGATIVE); URINE UROBILINOGEN NORMAL mg/dL (0.2-1.0)
[2017-11-30 00:22] VITALS: O2SAT 98
[2017-11-30 00:32] LABS: ALB/GLOB RATIO 1.2 (1.0-2.1); ALBUMIN 3.7 g/dL (3.5-5.0); ALT/SGPT 12 U/L (9-52); AST/SGOT 20 U/L (14-36); BLOOD UREA NITROGEN 13 mg/dL (7-17); CALCIUM 8.3 mg/dl (8.6-10.4); GFR AFRICAN-AMERICAN > 60; GFR NON-AFRICAN AMERICAN > 60
--- NOTE | 2017-11-30 00:32 | CT ---
EXAM: CT Head Without Intravenous Contrast CLINICAL HISTORY: 42 years old, female; Pain; Headache and other: R/O bleed TECHNIQUE: Axial computed tomography images of the head/brain without intravenous contrast. All CT scans at this facility use one or more dose reduction techniques, viz.: automated exposure control; ma/kV adjustment per patient size (including targeted exams where dose is matched to indication; i.e. head); or iterative reconstruction technique. COMPARISON: No relevant prior studies available. FINDINGS: Brain: No hemorrhage. No significant white matter disease. No edema. Ventricles: No hydrocephalus. Bones: Skull is intact. Soft tissues: No acute abnormality as visualized. Correlate clinically. Sinuses: No acute sinusitis. Mastoid air cells: No mastoid effusion. IMPRESSION: No CT evidence of acute intracranial abnormality.
[2017-11-30 01:19] VITALS: BP 103/66; PULSE 71; RESP 18; TEMP 97.8
--- NOTE | 2017-12-02 12:07 | CARD ---
APPROVED REPORT EKG Measurement Heart [id number] WA [id number] <Conclusion> Normal sinus rhythm Incomplete right bundle branch block Borderline ECG
== END 2017-11-30 01:21 | disposition home or self-care (01) ==
LOC: C.ER 23:03
DX: R51 Headache (principal)

== ENCOUNTER 2017-12-02 08:34 | Day surgery (SDC) | payer MEDICAID ==
[2017-12-02 10:22] VITALS: BMI 29.9
--- NOTE | 2017-12-02 10:23 | PCM.SURG1 ---
Surgeon's Initial Post Op Note - Surgeon's Notes Surgeon: Bon Lyle MD Machine Hoop Maker Helper: NONE Pre-Operative Diagnosis: Thyroid nodule Operative Findings: US showed a 1.6 cm solid left thyroid nodule Post-Operative Diagnosis: Thyroid nodule Operation Performed: US guided FNA Specimen/Specimens Removed: 25 g FNA x 5 Estimated Blood Loss: EBL {In ML}: 1 Blood Products Given: N/A Drains Used: No Drains Post-Op Condition: Good Date of Surgery/Procedure: 12/02/17 Time of Surgery/Procedure: 10:20
--- NOTE | 2017-12-02 10:24 | CP.SDSHP ---
Same Day Surgery H & P - History Proposed Procedure: FNA left thyroid nodule Pre-Op Diagnosis: Thyroid nodule - Allergies Allergies: Allergies No Known Allergies Allergy (Verified 11/29/17 23:18) - Physical Exam Mental Status: Alert & Oriented x3 Neuro: WNL Heart: WNL Lungs: WNL - Impression Impression: Pt with left thyroid nodule refered for FNA. Plan US guided FNA. Pt. Evaluated Today:Candidate for Anesthesia & Procedure: No - Date & Time Date: 12/02/17 Time: 10:00 Short Stay Discharge - Short Stay Discharge Admitting Diagnosis/Reason for Visit: E04.1-THYROID NODULE Disposition: HOME/ ROUTINE
--- NOTE | 2017-12-02 13:18 | US ---
PROCEDURE: Date of Procedure: 12/02/2017 PROCEDURE: 1. Ultrasound guided FNA of LEFt thyroid nodule, CPT 36071 2. Ultrasound guidance for FNA, 47430 Medications: 1% Lidocaine HISTORY: Enlarged LEFT thyroid nodule. TECHNIQUE: Following informed consent and procedure time-out, a limited ultrasound patient's neck confirmed the presence of a 1.6 cm complex LEFT thyroid nodule which is predominantly solid. After the patient's neck was prepped and draped in the usual sterile fashion, the skin was anesthetized with 1% lidocaine. Ultrasound-guided fine needle aspiration was then performed of the dominant LEFT thyroid nodule. A total of 5 passes were made into the nodule with 25 gauge needle under ultrasound guidance. The FNA specimen was sent for routine pathology. Post biopsy ultrasound showed no hematoma. IMPRESSION: Ultrasound-guided FNA of the dominant left thyroid nodule.
== END 2017-12-02 11:30 | disposition home or self-care (01) ==
LOC: C.SPRAD 08:34
PROVIDERS: ATTEND Radiology Vascular & Interventional Radiology
DX: E04.1 Nontoxic single thyroid nodule (principal)